=== PATIENT | female | born 1970 | race Caucasian/White ===

== ENCOUNTER 2017-12-19 19:15 | Emergency (ER) | payer SELFPAY ==
[~2017-12-19] VITALS: Ht 157.5 cm; Wt 77.6 kg
[2017-12-19 19:29] VITALS: BP 161/85; Ht 157.5 cm; Wt 77.6 kg
== END 2017-12-19 23:08 | disposition left against medical advice (07) ==
LOC: ED 19:15
DX: Z53.21 Procedure and treatment not carried out due to patient leaving prior to being seen by health care provider (principal)

== ENCOUNTER 2017-12-24 18:49 | Emergency (ER) | payer SELFPAY ==
[~2017-12-24] VITALS: Ht 157.5 cm; Wt 78.1 kg
[2017-12-24 20:23] LABS: BASOPHIL % 0.1 % (0-2)
[2017-12-24 20:24] LABS: RED CELL DISTRIBUTION WIDTH 17.6 % (11.5-14.5)
[2017-12-24 20:25] LABS: PLATELET COUNT 547 x10^3mcL (130-400)
[2017-12-24 20:29] LABS: CALCIUM 8.5 mg/dL (8.5-10.1); CARBON DIOXIDE 28.9 mmol/L (21-32); CHLORIDE SERUM 103 mmol/L (98-107); CREATININE SERUM 0.8 mg/dL (0.6-1.0); GFR1 > 60 mL/min; GLUCOSE SERUM 112 mg/dL (74-106); POTASSIUM SERUM 3.9 mmol/L (3.5-5.1); SODIUM SERUM 142 mmol/L (136-145)
[2017-12-24 20:35] LABS: rbc morphology (normal/abnorm) ABNORMAL (NORMAL)
[2017-12-24 23:02] VITALS: BP 133/75
== END 2017-12-24 23:02 | disposition home or self-care (01) ==
LOC: ED 18:49
PROVIDERS: Emergency Medicine
DX: D25.9 Leiomyoma of uterus, unspecified (principal); R10.9 Unspecified abdominal pain; J45.909 Unspecified asthma, uncomplicated; V43.92XA Unspecified car occupant injured in collision with other type car in traffic accident, initial encounter; Y93.89 Activity, other specified; Y92.89 Other specified places as the place of occurrence of the external cause; Y99.8 Other external cause status
CPT/HCPCS: J1885; Q0092; Q9967